=== PATIENT | male | born 1990 | race Two or more races ===

== ENCOUNTER 2024-04-05 10:51 | Inpatient (IN) | payer OTHER ==
[2024-04-05 11:49] VITALS: BMI 22.1
[2024-04-05] MEDS ORDERED: MAG HYDROX/AL HYDROX/SIMETH 30 ML UNIT-DOSE CUP PO PRN (13:15)
[2024-04-05] MEDS ORDERED: BENZONATATE 200 MG CAPSULE PO PRN (13:15)
[2024-04-05] MEDS ORDERED: BENZOCAINE/MENTHOL (CHLORASEPTIC ) LOZENGE MM PRN (13:15)
[2024-04-05] MEDS ORDERED: BISMUTH SUBSALICYLATE 524 MG/30 ML PO PRN (13:15)
[2024-04-05] MEDS ORDERED: IBUPROFEN 400 MG TABLET (FP) PO PRN (13:15)
[2024-04-05] MEDS ORDERED: guaiFENesin 600 MG TABLET.ER (FP) PO PRN (13:15)
[2024-04-05] MEDS ORDERED: methaDONE HCL 10 MG TABLET (FOR DETOX USE ONLY) PO PRN (13:15)
[2024-04-05] MEDS ORDERED: LOPERAMIDE HCL 2 MG CAPSULE PO PRN (13:15)
[2024-04-05] MEDS ORDERED: DICYCLOMINE HCL 10 MG CAPSULE PO PRN (13:15)
[2024-04-05] MEDS ORDERED: NALOXONE (NARCAN) HCL 4 MG/0.1 ML SPRAY NS PRN (13:15)
[2024-04-05] MEDS ORDERED: POLYETHYLENE GLYCOL (HEALTHYLAX) 3350 17 GM PACKET PO PRN (13:15)
[2024-04-05] MEDS ORDERED: IBUPROFEN 600 MG TABLET (FP) PO PRN (13:15)
[2024-04-05] MEDS ORDERED: MAGNESIUM HYDROX 2400MG/30ML ORAL SUSPENSION 30 ML CUP PO PRN (13:15)
[2024-04-05] MEDS: methaDONE HCL 10 MG TABLET (FOR DETOX USE ONLY) PO ONE (14:15)
[2024-04-05] MEDS: hydrOXYzine PAMOATE 25 MG CAPSULE (FP) PO PRN (14:26)
[2024-04-05] MEDS: NICOTINE POLACRILEX 2 MG GUM BUC PRN (15:23)
[2024-04-05] MEDS: METHOCARBAMOL 500 MG TABLET PO PRN (17:11)
[2024-04-05] MEDS: cloNIDine HCL 0.1 MG TABLET PO PRN (17:11)
[2024-04-05] MEDS: BICTEGRAV/EMTRICIT/TENOFOV (BIKTARVY) 50-200-25 MG TABLET PO SCH ×2 (18:49)
[2024-04-05] MEDS: THIAMINE 100 MG TABLET PO SCH (22:07)
[2024-04-05] MEDS: MELATONIN 5 MG TABLETS PO SCH (22:07)
[2024-04-05] MEDS: FAMOTIDINE 20 MG TABLET PO SCH (22:07)
[2024-04-05] MEDS: SULFAMETHOXAZOLE/TRIMETHOPRIM 800MG/160MG D.S. TABLET PO SCH (22:07)
[2024-04-06] MEDS: PRENATAL VITAMINS W/ FOLIC ACID TABLET (FP) PO SCH (09:35)
[2024-04-06] MEDS: NICOTINE 21 MG/24 HOURS TOPICAL PATCH TD PRN (09:36)
[2024-04-06] MEDS ORDERED: NICOTINE 14 MG/24 HOURS TOPICAL PATCH TD SCH (10:00)
[2024-04-06] MEDS ORDERED: methaDONE HCL 40 MG DISPERSABLE TABLET PO ONE (10:14)
[2024-04-06] MEDS ORDERED: cloNIDine HCL 0.1 MG TABLET PO SCH (14:00)
[2024-04-06 14:16] LABS: HEMATOCRIT 40.4 % (35.4-49); HEMOGLOBIN 13.5 GM/dL (11.7-16.9); MCH 28.6 pg (25.7-33.7); MCHC 33.4 g/dl (32.0-35.9); MEAN CELL VOLUME 85.6 fl (80-96); MEAN PLT VOLUME 8.5 fl (7.5-11.1); PLATELET COUNT 345 10^3/uL (134-434); RBC 4.72 M/mm3 (4.00-5.60); RDW 14.2 % (11.9-15.9); WHITE BLOOD COUNT 6.1 K/mm3 (4.0-10.0)
[2024-04-06 15:02] LABS: CHLORIDE 104 mmol/L (98-107); POTASSIUM 4.2 mmol/L (3.5-5.1); SODIUM 137 mmol/L (136-145)
[2024-04-06 15:17] LABS: CALCIUM 9.5 mg/dL (8.5-10.1)
[2024-04-06 15:18] LABS: ALBUMIN 3.9 g/dl (3.4-5.0); ANION GAP 7 mmol/L (4-13); BLOOD UREA NITROGEN 8.8 mg/dL (7-18); CO2 26 mmol/L (21-32); GLUCOSE,RANDOM 113 mg/dL (74-106)
[2024-04-06 15:20] LABS: SGPT/ALT 27 U/L (13-61)
[2024-04-06 15:21] LABS: SGOT/AST 9 U/L (15-37)
[2024-04-06 15:22] LABS: BILIRUBIN,TOTAL 0.5 mg/dL (0.2-1); TOT PROT 7.7 g/dl (6.4-8.2)
[2024-04-06 15:23] LABS: ALK PHOS 79 U/L (45-117)
[2024-04-06] MEDS: QUEtiapine FUMARATE 25 MG TABLET PO ONE (22:31)
[2024-04-06] MEDS: MELATONIN 5 MG TABLETS PO SCH (22:31)
[2024-04-07] MEDS ORDERED: methaDONE HCL 10 MG TABLET (FOR DETOX USE ONLY) PO ONE (10:00)
[2024-04-07] MEDS: methaDONE 40 MG, methaDONE 20 MG PO ONE (10:55)
[2024-04-07] MEDS: SUVOREXANT 10 MG TABLET PO PRN (23:55)
[2024-04-08] MEDS: methaDONE 40 MG, methaDONE 20 MG PO ONE (09:37)
[2024-04-08] MEDS ORDERED: methaDONE 40 MG, methaDONE 30 MG PO ONE (10:00)
[2024-04-08] MEDS ORDERED: methaDONE HCL 40 MG DISPERSABLE TABLET PO ONE (10:00)
[2024-04-08] MEDS: ONDANSETRON *ODT* 4 MG TABLET SL PRN (12:53)
[2024-04-08] MEDS: cloNIDine HCL 0.1 MG TABLET PO PRN (12:54)
[2024-04-08] MEDS: PENICILLIN G BENZATHINE 2,400,000 UNIT/4 ML PFS IM ONE (12:57)
[2024-04-08] MEDS: GABAPENTIN 300 MG CAPSULE PO SCH (13:26)
[2024-04-08] MEDS: diazePAM 5 MG TABLET PO PRN (16:53)
[2024-04-08] MEDS: levETIRAcetam 500 MG TABLET (FP) PO SCH (22:38)
[2024-04-09] MEDS ORDERED: methaDONE HCL 10 MG TABLET (FOR DETOX USE ONLY) PO ONE (10:00)
[2024-04-09] MEDS ORDERED: methaDONE HCL 40 MG DISPERSABLE TABLET PO ONE ×2 (10:00)
[2024-04-09] MEDS: NALOXONE (NYS OPIOID OVERDOSE PROGRAM) 4 MG/0.1 ML SPRAY NS SCH (10:42)
[2024-04-09] MEDS: methaDONE 40 MG, methaDONE 20 MG PO ONE (10:42)
[2024-04-09] MEDS: ACETAMINOPHEN 325 MG TABLET (FP) PO PRN (17:35)
[2024-04-10 06:47] VITALS: RESP 16
[2024-04-10] MEDS ORDERED: methaDONE HCL 10 MG TABLET ONE (09:35)
[2024-04-10 09:50] VITALS: BP 126/70; PULSE 117; TEMP 96.8
[2024-04-10] MEDS ORDERED: methaDONE HCL 40 MG DISPERSABLE TABLET PO ONE (10:00)
[2024-04-10] MEDS: methaDONE 40 MG, methaDONE 20 MG PO ONE (10:00)
[2024-04-10] MEDS ORDERED: methaDONE 80 MG, methaDONE 10 MG PO ONE (10:00)
== END 2024-04-10 10:58 | disposition home or self-care (01) | DRG 773 ==
LOC: YASAS 10:51 → Y6N 13:42
PROVIDERS: ADMIT Surgery; ATTEND Family Medicine Addiction Medicine
PROC: HZ2ZZZZ Detoxification Services for Substance Abuse Treatment (ICD-10-PCS; principal; 2024-04-05)
DX: F11.23 Opioid dependence with withdrawal (principal); F14.20 Cocaine dependence, uncomplicated; F12.20 Cannabis dependence, uncomplicated; F17.210 Nicotine dependence, cigarettes, uncomplicated; F43.10 Post-traumatic stress disorder, unspecified; Z21 Asymptomatic human immunodeficiency virus [HIV] infection status; A53.9 Syphilis, unspecified; G47.00 Insomnia, unspecified; L73.2 Hidradenitis suppurativa; Z79.899 Other long term (current) drug therapy
CPT/HCPCS: 36415; 80053; 80305; 80307; 85027; 86593; 86780; 93005; 93010; Q0162